=== PATIENT | female | born 1930 | race Caucasian/White ===

== ENCOUNTER 2018-08-12 12:00 | Emergency (ER) | payer MEDICARE ==
[~2018-08-12] VITALS: Ht 170.1 cm; Wt 59.0 kg
[2018-08-12] MEDS ORDERED: PRAVASTATIN SOD10 MG PO (12:06)
[2018-08-12] MEDS ORDERED: AMLODIPINE BES2.5 MG PO (12:06)
[2018-08-12] MEDS ORDERED: LASIX20 MG PO (12:06)
[2018-08-12] MEDS ORDERED: KLOR-CON SPRIN10 MEQ PO (12:07)
== END 2018-08-12 13:26 | disposition left against medical advice (07) ==
LOC: ED 12:00
DX: R10.13 Epigastric pain (principal); I10 Essential (primary) hypertension; E78.00 Pure hypercholesterolemia, unspecified; Z53.21 Procedure and treatment not carried out due to patient leaving prior to being seen by health care provider